=== PATIENT | female | born 1955 | race Caucasian/White ===

== ENCOUNTER → 2017-03-26 | Outpatient (CLI) | payer OTHER ==
[2017-03-26 23:04] LABS: BASO % 0 % (0-3); EOS # 0.6 x10^3/uL (0.0-0.7); EOS % 8 % (0-3); HEMATOCRIT 42.6 % (36.0-47.0); HEMOGLOBIN 14.2 g/dL (12.0-15.5); LYMPH % 23 % (24-48); MEAN CORPUSCULAR HEMOGLOBIN 29 pg (25-35); MEAN CORPUSCULAR HGB CONC 33 g/dL (31-37); MEAN CORPUSCULAR VOLUME 86 fL (79-100); MONO # 0.7 x10^3/uL (0.0-1.1); MONO % 9 % (0-9); NEUT % 60 % (31-73); PLATELET COUNT 349 x10^3/uL (140-400); RED BLOOD COUNT 4.94 x10^6/uL (3.50-5.40); RED CELL DISTRIBUTION WIDTH 13.7 % (11.5-14.5); WHITE BLOOD COUNT 8.4 x10^3/uL (4.0-11.0)
[2017-03-26 23:20] LABS: ALBUMIN 3.7 g/dL (3.4-5.0); ALBUMIN/GLOBULIN RATIO 0.9 (1.0-1.7); CALCIUM 8.9 mg/dL (8.5-10.1); CREATININE 0.8 mg/dL (0.6-1.0); GFR 73.4; POTASSIUM 4.1 mmol/L (3.5-5.1); TOTAL BILIRUBIN 0.6 mg/dL (0.2-1.0); TOTAL PROTEIN 7.7 g/dL (6.4-8.2)
[2017-03-27 01:10] LABS: BACTERIA,URINE FEW /HPF (0-FEW); BILIRUBIN,URINE NEG (NEG); CLARITY,URINE CLEAR; COLOR,URINE YELLOW; GLUCOSE,URINE NEG (NEG); NITRITE,URINE NEG (NEG); RBC,URINE OCC /HPF (0-2); UROBILINOGEN,URINE 0.2 mg/dL (0.2 mg/dL); WBC,URINE OCC /HPF (0-4)
[2017-03-27 01:11] LABS: SQUAMOUS EPITHELIAL CELL,UR OCC /LPF
[2017-03-27 13:58] LABS: FREE T4 0.98 ng/dL (0.76-1.46); THYROID STIM HORMONE (TSH) 3.371 uIU/mL (0.358-3.740)
== END | disposition home or self-care (01) ==
LOC: LAB 22:42
PROVIDERS: ATTEND Physician Assistant Medical
DX: I10 Essential (primary) hypertension (principal); E78.5 Hyperlipidemia, unspecified; R53.82 Chronic fatigue, unspecified
CPT/HCPCS: 80053; 80061; 81001; 82553; 84439; 84443; 84481; 85025

== ENCOUNTER → 2017-05-23 | Outpatient (CLI) | payer OTHER ==
[2017-05-24 03:16] LABS: HEMOGLOBIN A1C 5.8 % (4.8-5.6)
== END | disposition home or self-care (01) ==
LOC: LAB
PROVIDERS: ATTEND Physician Assistant Medical
DX: R73.9 Hyperglycemia, unspecified (principal)
CPT/HCPCS: 36415; 82947; 83036

== ENCOUNTER → 2018-05-29 | Outpatient (CLI) | payer OTHER ==
--- NOTE | 2018-05-29 14:28 | RAD ---
DATE: 05/29/2018 EXAM: MAMMO LIZ SCREENING BILATERAL HISTORY: Routine screening COMPARISON: 10/19/2010 This study was interpreted with the benefit of Computerized Aided Detection (CAD). Breast Density: FATTY The breast parenchyma is primarily fatty replaced. Breast parenchyma level density A. FINDINGS: 2-D and 3-D tomosynthesis imaging was performed in CC and MLO projections. No new or enlarging breast densities are seen. Benign type calcification is present. No suspicious microcalcifications have developed. IMPRESSION: Stable mammograms without evidence of malignancy. BI-RADS CATEGORY: 2 BENIGN FINDING(S) RECOMMENDED FOLLOW-UP: 12M 12 MONTH FOLLOW-UP PQRS compliance statement: Patient information was entered into a reminder system with a target due date for the next mammogram. Mammography is a sensitive method for finding small breast cancers, but it does not detect them all and is not a substitute for careful clinical examination. A negative mammogram does not negate a clinically suspicious finding and should not result in delay in biopsying a clinically suspicious abnormality. "Our facility is accredited by the [employer] Mammography Program."
== END | disposition home or self-care (01) ==
LOC: MAMMO 08:04
PROVIDERS: ATTEND Physician Assistant Medical
DX: Z12.31 Encounter for screening mammogram for malignant neoplasm of breast (principal)
CPT/HCPCS: 77063; 77067

== ENCOUNTER → 2018-06-02 | Outpatient (CLI) | payer OTHER ==
[2018-06-02 11:19] LABS: BASO % 0 % (0-3); EOS # 0.2 x10^3/uL (0.0-0.7); EOS % 5 % (0-3); HEMATOCRIT 44.3 % (36.0-47.0); HEMOGLOBIN 14.4 g/dL (12.0-15.5); LYMPH # 2.1 x10^3/uL (1.0-4.8); LYMPH % 38 % (24-48); MEAN CORPUSCULAR HEMOGLOBIN 28 pg (25-35); MEAN CORPUSCULAR HGB CONC 33 g/dL (31-37); MEAN CORPUSCULAR VOLUME 87 fL (79-100); MONO # 0.4 x10^3/uL (0.0-1.1); MONO % 7 % (0-9); NEUT # 2.7 x10^3uL (1.8-7.7); NEUT % 50 % (31-73); PLATELET COUNT 384 x10^3/uL (140-400); RED BLOOD COUNT 5.07 x10^6/uL (3.50-5.40); RED CELL DISTRIBUTION WIDTH 13.9 % (11.5-14.5); WHITE BLOOD COUNT 5.5 x10^3/uL (4.0-11.0)
[2018-06-02 11:43] LABS: ALBUMIN 3.4 g/dL (3.4-5.0); ALBUMIN/GLOBULIN RATIO 0.9 (1.0-1.7); CALCIUM 8.9 mg/dL (8.5-10.1); CREATININE 0.7 mg/dL (0.6-1.0); GFR 85.1; POTASSIUM 4.1 mmol/L (3.5-5.1); TOTAL BILIRUBIN 0.5 mg/dL (0.2-1.0); TOTAL PROTEIN 7.4 g/dL (6.4-8.2)
[2018-06-02 14:16] LABS: FREE T4 0.98 ng/dL (0.76-1.46); THYROID STIM HORMONE (TSH) 2.002 uIU/mL (0.358-3.740)
[2018-06-02 23:23] LABS: BILIRUBIN,URINE NEG (NEG); CLARITY,URINE CLEAR; COLOR,URINE YELLOW; GLUCOSE,URINE NEG (NEG)
[2018-06-02 23:24] LABS: BACTERIA,URINE FEW /HPF (0-FEW); NITRITE,URINE NEG (NEG); SQUAMOUS EPITHELIAL CELL,UR FEW /LPF; UROBILINOGEN,URINE 0.2 mg/dL (0.2 mg/dL)
== END | disposition home or self-care (01) ==
LOC: LAB 09:02
PROVIDERS: ATTEND Physician Assistant Medical
DX: R73.9 Hyperglycemia, unspecified (principal); E78.5 Hyperlipidemia, unspecified; E03.9 Hypothyroidism, unspecified
CPT/HCPCS: 36415; 80053; 80061; 81001; 83036; 84439; 84443; 84481; 85025; 87086

== ENCOUNTER → 2018-12-16 | Outpatient (CLI) | payer OTHER ==
[2018-12-16 08:46] LABS: BASO % 0 % (0-3); EOS # 0.2 x10^3/uL (0.0-0.7); EOS % 3 % (0-3); HEMATOCRIT 40.8 % (36.0-47.0); HEMOGLOBIN 13.4 g/dL (12.0-15.5); LYMPH # 2.2 x10^3/uL (1.0-4.8); LYMPH % 34 % (24-48); MEAN CORPUSCULAR HEMOGLOBIN 29 pg (25-35); MEAN CORPUSCULAR HGB CONC 33 g/dL (31-37); MEAN CORPUSCULAR VOLUME 88 fL (79-100); MONO # 0.5 x10^3/uL (0.0-1.1); MONO % 8 % (0-9); NEUT # 3.6 x10^3uL (1.8-7.7); NEUT % 55 % (31-73); PLATELET COUNT 369 x10^3/uL (140-400); RED BLOOD COUNT 4.62 x10^6/uL (3.50-5.40); RED CELL DISTRIBUTION WIDTH 13.8 % (11.5-14.5); WHITE BLOOD COUNT 6.4 x10^3/uL (4.0-11.0)
[2018-12-16 08:53] LABS: ALBUMIN 3.7 g/dL (3.4-5.0); CALCIUM 9.4 mg/dL (8.5-10.1); CREATININE 0.8 mg/dL (0.6-1.0); GFR 72.9; POTASSIUM 3.8 mmol/L (3.5-5.1); TOTAL BILIRUBIN 0.7 mg/dL (0.2-1.0); TOTAL PROTEIN 7.3 g/dL (6.4-8.2)
[2018-12-16 09:05] LABS: COLOR,URINE YELLOW
[2018-12-16 09:06] LABS: BACTERIA,URINE 0 /HPF (0-FEW); BILIRUBIN,URINE NEG (NEG); CLARITY,URINE CLEAR; GLUCOSE,URINE NEG (NEG); NITRITE,URINE NEG (NEG); RBC,URINE RARE /HPF (0-2); SQUAMOUS EPITHELIAL CELL,UR OCC /LPF; UROBILINOGEN,URINE 0.2 mg/dL (0.2 mg/dL); WBC,URINE OCC /HPF (0-4)
[2018-12-16 13:26] LABS: FREE T4 1.09 ng/dL (0.76-1.46)
[2018-12-16 13:27] LABS: THYROID STIM HORMONE (TSH) 2.815 uIU/mL (0.358-3.740)
[2018-12-16 23:11] LABS: HEMOGLOBIN A1C 5.8 % (4.8-5.6)
== END | disposition home or self-care (01) ==
LOC: LAB 07:32
PROVIDERS: ATTEND Physician Assistant Medical
DX: I10 Essential (primary) hypertension (principal); E78.5 Hyperlipidemia, unspecified; R42 Dizziness and giddiness
CPT/HCPCS: 36415; 80053; 80061; 81001; 82306; 82607; 83036; 84439; 84443; 84481; 85025

== ENCOUNTER → 2019-12-16 | Outpatient (CLI) | payer OTHER ==
[2019-12-16 23:07] LABS: BASO % 1 % (0-3); EOS # 0.3 x10^3/uL (0.0-0.7); EOS % 5 % (0-3); LYMPH # 1.9 x10^3/uL (1.0-4.8); LYMPH % 37 % (24-48); MEAN CORPUSCULAR HEMOGLOBIN 29 pg (25-35); MEAN CORPUSCULAR HGB CONC 33 g/dL (31-37); MEAN CORPUSCULAR VOLUME 88 fL (79-100); MONO # 0.4 x10^3/uL (0.0-1.1); MONO % 8 % (0-9); NEUT # 2.5 x10^3uL (1.8-7.7); NEUT % 49 % (31-73); PLATELET COUNT 351 x10^3/uL (140-400); RED CELL DISTRIBUTION WIDTH 13.8 % (11.5-14.5); WHITE BLOOD COUNT 5.2 x10^3/uL (4.0-11.0)
[2019-12-16 23:21] LABS: ALBUMIN 3.5 g/dL (3.4-5.0); CALCIUM 8.9 mg/dL (8.5-10.1); CREATININE 1.1 mg/dL (0.6-1.0); GFR 50.3; POTASSIUM 4.5 mmol/L (3.5-5.1); TOTAL BILIRUBIN 0.6 mg/dL (0.2-1.0); TOTAL PROTEIN 7.1 g/dL (6.4-8.2)
[2019-12-17 14:05] LABS: FREE T4 1.06 ng/dL (0.76-1.46); THYROID STIM HORMONE (TSH) 3.36 uIU/mL (0.358-3.740)
[2019-12-18 00:06] LABS: HEMOGLOBIN A1C 6.1 % (4.8-5.6)
== END | disposition home or self-care (01) ==
LOC: LAB 22:22
PROVIDERS: ATTEND Physician Assistant Medical
DX: E78.5 Hyperlipidemia, unspecified (principal); I10 Essential (primary) hypertension; E55.9 Vitamin D deficiency, unspecified; R73.9 Hyperglycemia, unspecified
CPT/HCPCS: 36415; 80053; 80061; 82306; 83036; 84439; 84443; 85025

== ENCOUNTER → 2019-12-21 | Outpatient (CLI) | payer OTHER | END | disposition home or self-care (01) | LOC: LAB 22:34 | PROVIDERS: ATTEND Internal Medicine Cardiovascular Disease | DX: Z20.828 Contact with and (suspected) exposure to other viral communicable diseases (principal) | CPT/HCPCS: 36415; U0003 ==

== ENCOUNTER → 2020-01-05 | Outpatient (CLI) | payer OTHER ==
--- NOTE | 2020-01-08 10:42 | NUR ---
IP: notified of COVID result.
== END | disposition home or self-care (01) ==
LOC: LAB 22:28
PROVIDERS: ATTEND Internal Medicine Cardiovascular Disease
DX: Z20.828 Contact with and (suspected) exposure to other viral communicable diseases (principal)
CPT/HCPCS: C9803; U0003; 36415

== ENCOUNTER → 2020-02-04 | Outpatient (CLI) | payer OTHER | END | disposition home or self-care (01) | LOC: LAB 08:47 | PROVIDERS: ATTEND Internal Medicine Cardiovascular Disease | DX: Z20.828 Contact with and (suspected) exposure to other viral communicable diseases (principal) | CPT/HCPCS: U0003-CS ==

== ENCOUNTER → 2020-06-09 | Outpatient (CLI) | payer OTHER ==
[2020-06-09 07:44] LABS: ALBUMIN 3.7 g/dL (3.4-5.0); DIRECT BILIRUBIN 0.1 mg/dL (0.0-0.2); TOTAL BILIRUBIN 0.2 mg/dL (0.2-1.0); TOTAL PROTEIN 7.8 g/dL (6.4-8.2)
== END ==
LOC: LAB 07:12
PROVIDERS: ATTEND Physician Assistant Medical
DX: E78.5 Hyperlipidemia, unspecified (principal)
CPT/HCPCS: 36415; 80076

== ENCOUNTER 2020-12-04 06:48 | Emergency (ER) | payer OTHER ==
[~2020-12-04] VITALS: Ht 162.6 cm; Wt 128.3 kg
[2020-12-04] MEDS ORDERED: IV NORMAL SALINE 1,000ML 1,000 ML IV ONE (07:00)
[2020-12-04] MEDS ORDERED: SMZ/TMP 800/160MG TABLET. PO ONE (07:15)
[2020-12-04] MEDS ORDERED: diphenhydrAMINE 50 MG/ML VIAL IVP ONE (07:15)
--- NOTE | 2020-12-04 07:17 | PHYS DOC ---
General Adult EDM: Chief Complaint: MULTIPLE COMPLAINTS HPI: HPI: 65-year-old female presents with left periorbital erythema and swelling as well as development of fever. The patient was outside mowing the yard yesterday and after she came inside she felt warm. She started to have some swelling on the l eft side of her nose around her left eye. After being in the air conditioning for a while, she still felt warm and decided to check her temperature. She had a fever of 101. She took Tylenol and it improved. This morning, the facial swelling is worse on the left and has expanded to the right side. She is having drainage from her eyes, but it is clear. She denies any eye pain or difficulty moving her eyes. She has no cough, shortness of breath, dysuria, urinary frequency. The patient denies any known allergies. She has had no exposure to any new things as far as she knows. Review of Systems: Review of Systems: Constitutional: Fever Eyes: Denies change in visual acuity. Periorbital swelling of the left eye. HENT: Erythema and swelling of the nasal and periorbital area worse on the left Respiratory: Denies cough or shortness of breath Cardiovascular: Denies chest pain or edema GI: Denies abdominal pain, nausea, vomiting, bloody stools or diarrhea : Denies dysuria Musculoskeletal: Denies back pain or joint pain Integument: Denies rash Neurologic: Denies headache, focal weakness or sensory changes Endocrine: Denies polyuria or polydipsia Lymphatic: Denies swollen glands Psychiatric: Denies depression or anxiety Current Medications: Current Meds: Current Medications Medications (Trade) Dose Ordered Sig/[facility] Start Time Stop Time Status Last Admin Dose Admin Ceftriaxone Sodium 1 gm/ Sodium Chloride 50 ml @ 100 mls/hr 1X ONCE 12/04/20 07:15 12/04/20 07:44 UNV Diphenhydramine HCl (Benadryl) 50 mg 1X ONCE 12/04/20 07:15 12/04/20 07:16 UNV Sodium Chloride 1,000 ml @ 1,000 mls/hr 1X ONCE 12/04/20 07:00 12/04/20 07:59 UNV Trimethoprim/ Sulfamethoxazole (Bactrim Ds) 1 tab 1X ONCE 12/04/20 07:15 12/04/20 07:16 UNV Physical Exam: PE: Constitutional: Well developed, well nourished, no acute distress, non-toxic appearance. [] HENT: Normocephalic, atraumatic, bilateral external ears normal, oropharynx moist, no oral exudates, nose erythematous and hot to the touch with moderate swelling. [] Eyes: PERRLA, EOMI, conjunctiva normal, no purulent discharge. Periorbital edema with warmth bilaterally, but most significant around the left eye including the upper eyelid. [] Neck: Normal range of motion, no tenderness, supple, no stridor. [] Cardiovascular:Heart rate regular rhythm, no murmur [] Lungs & Thorax: Bilateral breath sounds clear to auscultation [] Abdomen: Bowel sounds normal, soft, no tenderness, no masses, no pulsatile masses. [] Skin: Warm, erythematous skin of the nose and periorbital area worse on the left [] Back: No tenderness, no CVA tenderness. [] Extremities: No tenderness, no cyanosis, no clubbing, ROM intact, no edema. [] Neurologic: Alert and oriented X 3, normal motor function, normal sensory function, no focal deficits noted. [] Psychologic: Affect normal, judgement normal, mood normal. [] EKG: EKG: [] Radiology/Procedures: Radiology/Procedures: [] Impressions: CT ORBITS/SELLA WITH IV CONTRAST History: Reason: preseptal swelling, fever, rule out orbital cellulitis / Spl. Instructions: / History: Comparison: None. Technique: Noncontrast CT imaging was performed of the orbits. Coronal and sagittal reconstructions were performed. Exposure: One or more of the following individualized dose reduction techniques were utilized for this examination: 1. Automated exposure control 2. Adjustment of the mA and/or kV according to patient size 3. Use of iterative reconstruction technique. Findings: Left preseptal periorbital soft tissue swelling. No loculated fluid collection to suggest abscess. No retro-orbital involvement. Symmetric appearance of the globes. Symmetric appearance of the bilateral external ocular muscles and optic nerve sheaths. No acute fracture. Paranasal sinuses and mastoid air cells are clear. Imaged intracranial contents are unremarkable. Impression: 1. Left preseptal periorbital soft tissue swelling. No retro-orbital involvement. Electronically signed by: Rene Summers DO (12/04/2020 8:46 AM) [facility] DICTATED AND SIGNED BY: RENE SUMMERS DO DATE: 12/04/20 0832 CC: SAMANTHA MARTIN DO; JARRETT PHAM ~MTH0 0 Heart Score: C/O Chest Pain: N/A Risk Factors: Risk Factors: DM, Current or recent (<one month) smoker, HTN, HLP, family history of CAD, obesity. Risk Scores: Score 0 - 3: 2.5% MACE over next 6 weeks - Discharge Home Score 4 - 6: 20.3% MACE over next 6 weeks - Admit for Clinical Observation Score 7 - 10: 72.7% MACE over next 6 weeks - Early Invasive Strategies Course & Med Decision Making: Course & Med Decision Making Pertinent Labs and Imaging studies reviewed. (See chart for details) The patient appears to have periorbital cellulitis. I have ordered a CT with contrast to rule out orbital cellulitis. Labs are unremarkable except for a left shift. CT scan does not show orbital involvement. I have treated the patient with Benadryl IV, a gram of Rocephin and Bactrim DS in the emergency room. I will discharge her with Bactrim DS twice daily and cefdinir 300 mg twice daily. She is stable for discharge at this time. [] Dragon Disclaimer: Dragon Disclaimer: This electronic medical record was generated, in whole or in part, using a voice recognition dictation system. Departure Departure: Impression: Primary Impression: Periorbital cellulitis of left eye Disposition: HOME / SELF CARE / HOMELESS Condition: STABLE Referrals: JARRETT PHAM (PCP) Patient Instructions: Periorbital Cellulitis Scripts Cefdinir (CEFDINIR) 300 Mg Capsule 1 CAP PO BID for cellulitis, #14 CAP Prov: SAMANTHA MARTIN DO 12/04/20 Sulfamethoxazole/Trimethoprim (BACTRIM DS TABLET) 1 Each Tablet 1 TAB PO BID for cellulitis for 7 Days, #14 TAB 0 Refills Prov: SAMANTHA MARTIN DO 12/04/20 SAMANTHA MARTIN DO Dec 04, 2020 07:17
[2020-12-04] MEDS ORDERED: IV NORMAL SALINE 50ML 50 ML ONE (07:26)
[2020-12-04] MEDS ORDERED: cefTRIAXone SODIUM 1 GM VIAL ONE (07:26)
[2020-12-04 07:30] VITALS: BP 158/94
[2020-12-04] MEDS ORDERED: IBUPROFEN 600 MG TABLET. PO ONE (07:30)
[2020-12-04] MEDS ORDERED: IOHEXOL 300 MG/ML 75 ML VIAL. IV ONE (07:30)
[2020-12-04 07:44] LABS: BASO % 0 % (0-3); EOS % 0 % (0-3); HEMATOCRIT 42.3 % (36.0-47.0); LYMPH # 0.8 x10^3/uL (1.0-4.8); LYMPH % 7 % (24-48); MEAN CORPUSCULAR HEMOGLOBIN 29 pg (25-35); MEAN CORPUSCULAR HGB CONC 33 g/dL (31-37); MEAN CORPUSCULAR VOLUME 87 fL (79-100); MONO # 0.7 x10^3/uL (0.0-1.1); MONO % 6 % (0-9); NEUT # 9.5 x10^3uL (1.8-7.7); NEUT % 87 % (31-73); PLATELET COUNT 329 x10^3/uL (140-400); RED BLOOD COUNT 4.87 x10^6/uL (3.50-5.40); RED CELL DISTRIBUTION WIDTH 14.1 % (11.5-14.5)
[2020-12-04 07:53] LABS: POTASSIUM 4.1 mmol/L (3.5-5.1)
[2020-12-04 07:59] LABS: ALBUMIN 3.7 g/dL (3.4-5.0); TOTAL BILIRUBIN 0.6 mg/dL (0.2-1.0); TOTAL PROTEIN 7.5 g/dL (6.4-8.2)
[2020-12-04] MEDS ORDERED: CONTRAST GIVEN. MC PRN (08:15)
--- NOTE | 2020-12-04 08:48 | RAD ---
CT ORBITS/SELLA WITH IV CONTRAST History: Reason: preseptal swelling, fever, rule out orbital cellulitis / Spl. Instructions: / Histo ry: Comparison: None. Technique: Noncontrast CT imaging was performed of the orbits. Coronal and sagittal reconstructions w ere performed. Exposure: One or more of the following individualized dose reduction techniques were utilized for thi s examination: 1. Automated exposure control 2. Adjustment of the mA and/or kV according to patient size 3. Use of iterative reconstruction technique. Findings: Left preseptal periorbital soft tissue swelling. No loculated fluid collection to suggest abscess. N o retro-orbital involvement. Symmetric appearance of the globes. Symmetric appearance of the bilatera l external ocular muscles and optic nerve sheaths. No acute fracture. Paranasal sinuses and mastoid air cells are clear. Imaged intracranial contents are unremarkable. Impression: 1. Left preseptal periorbital soft tissue swelling. No retro-orbital involvement. Electronically signed by: Fabian Cassidy DO (12/04/2020 8:46 AM) [facility]
[2020-12-04 08:53] LABS: BILIRUBIN,URINE NEG (NEG); CLARITY,URINE CLEAR; COLOR,URINE YELLOW; GLUCOSE,URINE NEG (NEG); NITRITE,URINE NEG (NEG); UROBILINOGEN,URINE 0.2 mg/dL (0.2 mg/dL)
[2020-12-04 09:01] LABS: BACTERIA,URINE 0 /HPF (0-FEW); SQUAMOUS EPITHELIAL CELL,UR MOD /LPF
[2020-12-04] MEDS ORDERED: SULF1TAB24 PO (09:02)
[2020-12-04] MEDS ORDERED: CEFD300C PO (09:02)
[2020-12-05] MEDS ORDERED: PRAV10TA2 PO (10:30)
[2020-12-05] MEDS ORDERED: HYDR-2145 PO (10:30)
[2020-12-05] MEDS ORDERED: LISI20TA18 PO (10:30)
[2020-12-05] MEDS ORDERED: MELO15TA23 PO (10:30)
== END 2020-12-04 09:10 | disposition home or self-care (01) ==
LOC: ER 06:48
DX: L03.213 Periorbital cellulitis (principal)
CPT/HCPCS: 36415; 70481; 80053; 81001; 85025; 87040; 87086; 96365; 96375; 99285; J0696; J1200; J7030

== ENCOUNTER 2020-12-05 06:20 | Inpatient (IN) | payer OTHER ==
[~2020-12-05] VITALS: Ht 162.6 cm; Wt 126.8 kg
[~2020-12-05 06:20] MED LIST: CEFD300C PO; SULF1TAB24 PO
--- NOTE | 2020-12-05 06:39 | PHYS DOC ---
Past History Past Surgical History: No Surgical History Alcohol Use: None General Adult EDM: Chief Complaint: SKIN PROBLEM HPI: HPI: 65-year-old female returns the emergency room with worsening facial cellulitis. I personally saw the patient yesterday and placed her on Bactrim and cefdinir. The patient has taken doses yesterday evening and this morning. She is concerned because the cellulitis is worse. She has worsened swelling of her nose and expansion of the area more on the right side of her face. No fever on arrival. Review of Systems: Review of Systems: Constitutional: Denies fever or chills Eyes: Denies change in visual acuity HENT: Denies nasal congestion or sore throat Respiratory: Denies cough or shortness of breath Cardiovascular: Denies chest pain or edema GI: Denies abdominal pain, nausea, vomiting, bloody stools or diarrhea : Denies dysuria Musculoskeletal: Denies back pain or joint pain Integument: Facial rash Neurologic: Denies headache, focal weakness or sensory changes Endocrine: Denies polyuria or polydipsia Lymphatic: Denies swollen glands Psychiatric: Denies depression or anxiety Allergies: Allergies: Allergies Coded Allergies Type Severity Reaction Last Updated Verified No Known Drug Allergies 12/04/20 No Physical Exam: PE: Constitutional: Well developed, well nourished, no acute distress, non-toxic appearance. [] HENT: Normocephalic, atraumatic, bilateral external ears normal, oropharynx moist, no oral exudates, nose normal. [] Eyes: PERRLA, EOMI, conjunctiva normal, no discharge. [] Neck: Normal range of motion, no tenderness, supple, no stridor. [] Cardiovascular:Heart rate regular rhythm, no murmur [] Lungs & Thorax: Bilateral breath sounds clear to auscultation [] Abdomen: Bowel sounds normal, soft, no tenderness, no masses, no pulsatile masses. [] Skin: Hot, erythematous rash of the face including bilateral periorbital area and nose. [] Back: No tenderness, no CVA tenderness. [] Extremities: No tenderness, no cyanosis, no clubbing, ROM intact, no edema. [] Neurologic: Alert and oriented X 3, normal motor function, normal sensory function, no focal deficits noted. [] Psychologic: Affect normal, judgement normal, mood normal. [] EKG: EKG: [] Radiology/Procedures: Radiology/Procedures: [] Heart Score: C/O Chest Pain: N/A Risk Factors: Risk Factors: DM, Current or recent (<one month) smoker, HTN, HLP, family history of CAD, obesity. Risk Scores: Score 0 - 3: 2.5% MACE over next 6 weeks - Discharge Home Score 4 - 6: 20.3% MACE over next 6 weeks - Admit for Clinical Observation Score 7 - 10: 72.7% MACE over next 6 weeks - Early Invasive Strategies Course & Med Decision Making: Course & Med Decision Making Pertinent Labs and Imaging studies reviewed. (See chart for details) The patient's condition does seem to worsened quite a bit in less than 24 hours. I will give her a gram of Rocephin in the emergency room and admit her to the hospital. Her CT scan from yesterday showed no orbital involvement. I spoke with Dr. Goodman and he has accepted the patient for admission. He is also asked that we start vancomycin in the ED which we have done. The patient is in agreement with admission. [] Dragon Disclaimer: Dragon Disclaimer: This electronic medical record was generated, in whole or in part, using a voice recognition dictation system. Departure Departure: Impression: Primary Impression: Erysipelas Disposition: ADMITTED INPATIENT Admitting Physician: Gina Goodman Condition: STABLE Referrals: JARRETT PHAM (PCP) SAMANTHA MARTIN DO Dec 05, 2020 06:39
[2020-12-05] MEDS ORDERED: ACETAMINOPHEN 325 MG TABLET PO PRN (07:15)
[2020-12-05] MEDS ORDERED: ONDANSETRON PF 4 MG/2 ML VIAL. IVP PRN (07:15)
[2020-12-05] MEDS ORDERED: IV NORMAL SALINE 50ML 50 ML ONE (07:17)
[2020-12-05] MEDS ORDERED: cefTRIAXone SODIUM 1 GM VIAL ONE (07:17)
[2020-12-05 07:32] LABS: BASO % 0 % (0-3); EOS % 0 % (0-3); HEMATOCRIT 40.8 % (36.0-47.0); HEMOGLOBIN 13.6 g/dL (12.0-15.5); LYMPH % 9 % (24-48); MEAN CORPUSCULAR HEMOGLOBIN 29 pg (25-35); MEAN CORPUSCULAR HGB CONC 33 g/dL (31-37); MEAN CORPUSCULAR VOLUME 87 fL (79-100); MONO # 0.5 x10^3/uL (0.0-1.1); MONO % 5 % (0-9); NEUT % 85 % (31-73); PLATELET COUNT 304 x10^3/uL (140-400); RED BLOOD COUNT 4.69 x10^6/uL (3.50-5.40); RED CELL DISTRIBUTION WIDTH 14.2 % (11.5-14.5); WHITE BLOOD COUNT 10.5 x10^3/uL (4.0-11.0)
[2020-12-05 07:39] LABS: CALCIUM 8.5 mg/dL (8.5-10.1); POTASSIUM 3.7 mmol/L (3.5-5.1)
[2020-12-05 07:45] LABS: ALBUMIN 3.5 g/dL (3.4-5.0); ALBUMIN/GLOBULIN RATIO 0.9 (1.0-1.7); TOTAL BILIRUBIN 0.4 mg/dL (0.2-1.0); TOTAL PROTEIN 7.3 g/dL (6.4-8.2)
[2020-12-05] MEDS ORDERED: VANCOMYCIN 2 GM in IV NORMAL SALINE 500ML 500 ML IV ONE (08:00)
[2020-12-05 09:45] VITALS: BP 152/85
[2020-12-05] MEDS ORDERED: HYDR-2145 PO (10:30)
[2020-12-05] MEDS ORDERED: LISI20TA18 PO (10:30)
[2020-12-05] MEDS ORDERED: MELO15TA23 PO (10:30)
[2020-12-05] MEDS ORDERED: PRAV10TA2 PO (10:30)
[2020-12-05] MEDS: hydroCHLOROthiazide 25 MG TABLET. PO SCH (10:59)
[2020-12-05] MEDS: MELOXICAM 15 MG TABLET. PO SCH (10:59)
[2020-12-05] MEDS: ATORVASTATIN CALCIUM 10 MG TABLET. PO SCH (10:59)
[2020-12-05] MEDS: LISINOPRIL 20 MG TABLET PO SCH (11:00)
[2020-12-05] MEDS ORDERED: VANCOMYCIN PER PHARMACY MC PRN (13:15)
--- NOTE | 2020-12-05 13:25 | HP ---
ADMIT DATE: 12/05/2020 HISTORY OF PRESENT ILLNESS: The patient is a 65-year-old female patient who presented to the Emergency Room with worsening facial cellulitis. She was seen in the Emergency Room yesterday, was placed on Bactrim and cefdinir. She took her medication yesterday evening and this morning; however, she came back because her cellulitis is worse. She has worsened swelling of her nose and expansion of the area, more on the right side of her face. Denied any fever. Denied any headache, blurring of vision. She was examined and extensively investigated. Her white cell count was normal 10,000. Her chemistry was unremarkable. She did have a CT scan of the orbit done yesterday, which showed that the patient has left preseptal periorbital soft tissue swelling. No loculated fluid collection to suggest abscess. No auditory or orbital involvement. Symmetric appearance of the globes, symmetric appearance of the bilateral external ocular muscles and optic nerve sheath, no acute fracture. She has paranasal sinuses and mastoid air cells are clear. Imaged intracranial contents are unremarkable. The patient was admitted, started on IV ceftriaxone as well as vancomycin. We will follow her closely and decide on further management accordingly. PAST MEDICAL HISTORY: Significant for hypertension, hyperlipidemia as well as plantar fasciitis. PAST SURGICAL HISTORY: Significant for appendectomy. ALLERGIES: She has no known drug allergies. MEDICATIONS: She is currently on the following medications: She is on pravastatin ____ mg at bedtime, lisinopril 20 mg once a day, meloxicam 15 mg daily and hydrochlorothiazide 25 mg daily. She was also on cefdinir 300 mg twice a day and sulfamethoxazole, trimethoprim one tablet twice a day. FAMILY HISTORY: She has 1 older brother and 1 younger sister, both healthy. Her father of massive heart attack at the age of 53. Mother is still alive at the age of 85 and has bronchial asthma and hypothyroidism. SOCIAL HISTORY: She is , has 2 sons. She never smoked. Drinks alcohol occasionally. Does not use any drugs. 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 REVIEW OF SYSTEMS: As per history of present illness. PHYSICAL EXAMINATION: GENERAL: On examining her, she looked well and was clearly in no apparent respiratory distress. There was no pallor, jaundice, cyanosis, or thyromegaly. No jugular venous distention. No lower limb edema. VITAL SIGNS: Her heart rate was 88, blood pressure is 156/89, temperature was 99.9, respiratory rate was 20 and oxygen saturation was 96%. HEAD, EYES, EARS, NOSE, AND THROAT: Normocephalic, atraumatic. She has redness extending over the bridge of the nose and around her right eye and left eye in the distribution typical of erysipelas. NECK: Supple. HEART: Showed normal first and second heart sounds. No gallop, rub or murmur. CHEST: Clear to auscultation, no crepitation or rhonchi. ABDOMEN: Distended, soft, nontender, no guarding or rigidity. No organomegaly. All hernial orifice intact. Bowel sounds normal. NEUROLOGIC: She was awake, alert, responding appropriately. Cranial nerves intact. She moves extremities without difficulty. She ambulates without assistance or assistive devices. LABORATORY DATA: Showed that her white cell count was 10,500, hemoglobin 13.6, hematocrit 40.8, MCV 87 and platelet count of 304,000 with a manual differential showed 85% polymorphs, 9% lymphocytes, 5% monocytes. Her chemistry showed a serum sodium 140, potassium 3.7, chloride 104, bicarbonate 29, anion gap of 7, BUN 11, creatinine 1, estimated GFR was 56 mL per minute. Her glucose 124, calcium was 8.5. Total bilirubin, AST, ALT, alkaline phosphatase were normal. Total protein 7.3, albumin was 3.5. ASSESSMENT: Erysipelas. PLAN: To continue with IV ceftriaxone as well as vancomycin. I would probably hold off on the cefdinir and Bactrim for now and follow her response clinically on a daily basis. ROMULO/SANDY DR: Yuli TID: [id number]
[2020-12-05 15:42] VITALS: BP 160/85
[2020-12-05] MEDS: ACETAMINOPHEN 325 MG TABLET PO PRN ×2 (15:45→20:00)
[2020-12-05 20:05] VITALS: BP 95/63
[2020-12-05] MEDS ORDERED: SMZ/TMP 800/160MG TABLET. PO SCH (21:00)
[2020-12-05] MEDS ORDERED: CEFDINIR 300 MG CAPSULE PO SCH (21:00)
[2020-12-05] MEDS: VANCOMYCIN 1.75 GM in IV NORMAL SALINE 500ML 500 ML IV SCH (21:22)
[2020-12-05 23:03] VITALS: BP 113/65
[2020-12-06 03:19] VITALS: BP 136/74
[2020-12-06] MEDS: ACETAMINOPHEN 325 MG TABLET PO PRN (03:24)
[2020-12-06 06:26] VITALS: BP 127/68
[2020-12-06] MEDS: hydroCHLOROthiazide 25 MG TABLET. PO SCH (09:08)
[2020-12-06] MEDS: MELOXICAM 15 MG TABLET. PO SCH (09:08)
[2020-12-06] MEDS: LISINOPRIL 20 MG TABLET PO SCH (09:09)
[2020-12-06] MEDS: ATORVASTATIN CALCIUM 10 MG TABLET. PO SCH (09:09)
[2020-12-06] MEDS: VANCOMYCIN 1.75 GM in IV NORMAL SALINE 500ML 500 ML IV SCH ×2 (09:11→21:04)
[2020-12-06 11:36] VITALS: BP 113/55
[2020-12-06 15:26] VITALS: BP 153/72
[2020-12-06 18:24] VITALS: BP 126/75
[2020-12-06] MEDS: LACTOBACILLUS RHAMNOSUS GG 1 CAPSULE. PO SCH (20:13)
--- NOTE | 2020-12-06 20:22 | PN ---
DATE: 12/06/2020 SUBJECTIVE: The patient is sitting on the edge of the bed comfortably, in no apparent distress. Questioning her, denied any complaint. The redness on her face and around her eyes is slowly receding. PHYSICAL EXAMINATION: GENERAL: When I examined her, she looked well and was clearly in no apparent respiratory distress. No pallor, jaundice, cyanosis, or thyromegaly. No jugular venous distention. No limb edema. VITAL SIGNS: Her heart rate was 62, blood pressure was 113/55, temperature was 96.7, respiratory rate 20, and oxygen saturation was 97%. HEAD, EYES, EARS, NOSE, AND THROAT: Normocephalic, atraumatic. NECK: Supple. HEART: Normal first and second heart sounds. No gallop or murmur. CHEST: Clear to auscultation. No crepitation or rhonchi. ABDOMEN: Distended, soft, nontender. NEUROLOGIC: She was grossly intact. SKIN: Examination of the skin of her face showed that the erythema and raised edges are receding slowly. Her intake over the last 24 hours was 1600, no output was recorded. LABORATORY DATA: No lab work done this morning. ASSESSMENT: Erysipelas which we will continue with IV ceftriaxone as well as vancomycin. Other medical problems include hypertension, hyperlipidemia and plantar fasciitis. PLAN: To continue with IV ceftriaxone and Rocephin and she probably can be discharged home tomorrow on oral antibiotic and/or she can go home with a PICC line and IV Rocephin 2 grams once a day for another [address]: Yuli TID: [id number]
[2020-12-06 20:29] LABS: VANC TR 15.2 mcg/mL (10.0-20.0)
[2020-12-06 23:13] VITALS: BP 121/82
[2020-12-07 06:16] VITALS: BP 153/86
[2020-12-07 06:29] LABS: HEMATOCRIT 39.6 % (36.0-47.0); HEMOGLOBIN 13.1 g/dL (12.0-15.5); RED BLOOD COUNT 4.59 x10^6/uL (3.50-5.40); RED CELL DISTRIBUTION WIDTH 13.9 % (11.5-14.5); WHITE BLOOD COUNT 5.6 x10^3/uL (4.0-11.0)
[2020-12-07 06:36] LABS: ALBUMIN/GLOBULIN RATIO 0.8 (1.0-1.7); CALCIUM 8.4 mg/dL (8.5-10.1); CREATININE 0.8 mg/dL (0.6-1.0); GFR 72.4; POTASSIUM 3.8 mmol/L (3.5-5.1); TOTAL BILIRUBIN 0.3 mg/dL (0.2-1.0); TOTAL PROTEIN 6.9 g/dL (6.4-8.2)
[2020-12-07] MEDS: hydroCHLOROthiazide 25 MG TABLET. PO SCH (08:48)
[2020-12-07] MEDS: MELOXICAM 15 MG TABLET. PO SCH (08:48)
[2020-12-07] MEDS: LISINOPRIL 20 MG TABLET PO SCH (08:48)
[2020-12-07] MEDS: LACTOBACILLUS RHAMNOSUS GG 1 CAPSULE. PO SCH ×2 (08:48→20:24)
[2020-12-07] MEDS: VANCOMYCIN 1.75 GM in IV NORMAL SALINE 500ML 500 ML IV SCH ×2 (08:48→21:32)
[2020-12-07] MEDS: ATORVASTATIN CALCIUM 10 MG TABLET. PO SCH (08:48)
[2020-12-07 10:29] VITALS: BP 121/78
[2020-12-07 15:06] VITALS: BP 111/71
[2020-12-07 19:45] VITALS: BP 125/88
--- NOTE | 2020-12-07 20:15 | PN ---
DATE: 12/07/2020 ATTENDING PHYSICIAN: Dr. Goodman/Dr. Rios. SUBJECTIVE: No new complaints. Swelling, erythema of face is improved. She denies any visual issues. The swelling along the orbits had receded. OBJECTIVE FINDINGS: VITAL SIGNS: Blood pressure is 121/82 mmHg. She is afebrile. Oxygen saturation 95% on room air. HEENT: There is swelling, erythema along the orbits, it is more prominent on the left side, it is receding and the swelling is diminishing. There is no open drainage or abscess. Extraocular muscles intact. There is no diplopia. NECK: Supple. No stridor. LUNGS: Clear. CARDIOVASCULAR: Shows regular heart sounds, no gallops. ABDOMEN: Soft. EXTREMITIES: Without edema. NEUROLOGIC: Focally intact. SKIN: Warm and dry. PERTINENT LABORATORY DATA: Hemoglobin 13.1 g/dL with a white count of 5600. Electrolytes within normal range. Nonfasting blood sugar 114 mg/dL. ASSESSMENT: 1. Erysipelas refractory to outpatient oral antibiotics. 2. Essential hypertension. 3. Hyperlipidemia. 4. History of plantar fasciitis. PLAN: 1. Continue IV antibiotics as ordered. 2. We will monitor her degree of infection. If progress is slow, then she will probably need further IV antibiotics in the form of a PICC line. We will make that decision tomorrow. RYAN/SANDY DR: Alisha TID: [id number] CC: JAMAR LIU
[2020-12-07 22:30] VITALS: BP 108/87
[2020-12-08 06:05] VITALS: BP 133/85
[2020-12-08 08:45] LABS: VANC TR 20.5 mcg/mL (10.0-20.0)
[2020-12-08 09:18] VITALS: BP 133/85
[2020-12-08] MEDS: LISINOPRIL 20 MG TABLET PO SCH (09:18)
[2020-12-08] MEDS: ATORVASTATIN CALCIUM 10 MG TABLET. PO SCH (09:18)
[2020-12-08] MEDS: hydroCHLOROthiazide 25 MG TABLET. PO SCH (09:18)
[2020-12-08] MEDS: LACTOBACILLUS RHAMNOSUS GG 1 CAPSULE. PO SCH (09:18)
[2020-12-08] MEDS: MELOXICAM 15 MG TABLET. PO SCH (09:18)
--- NOTE | 2020-12-08 09:26 | DS ---
DATE OF DISCHARGE: 12/08/2020 ATTENDING PHYSICIAN: Dr. Goodman. FINAL DISCHARGE DIAGNOSES: 1. Erysipelas of face. 2. Hyperlipidemia. 3. Essential hypertension. 4. History of plantar fasciitis. 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 She had erysipelas of the face. She was given oral antibiotics in the ED namely cefdinir as well as Bactrim without any improvement. She was admitted then with erysipelas refractory to outpatient oral antibiotics. PHYSICAL EXAMINATION: Please see the dictated note. PERTINENT LABORATORY AND X-RAY STUDIES: Admission hemoglobin was 13.6 g/dL, white count 10,500. Repeat white count was down to 5600. Electrolytes within normal range. Creatinine 0.8 mg %. Nonfasting blood sugar 124. Liver panel, transaminases are all within normal range. COURSE IN THE HOSPITAL: The patient was admitted. She was treated with 3 full days of intravenous antibiotics with marked improvement. On the fourth hospital day, her vital signs were stable. She was afebrile. She was ready for discharge. The swelling, edema and erythema had all dissipated. At this time, due to the nature of classic presentation of erysipelas, which is usually due to streptococcal species, Strep pyogenes, I recommended Augmentin 875 one b.i.d. for 10 more days. Other home meds remains unchanged. She should continue her lisinopril 20 mg daily and pravastatin dose is unchanged. I suggest a followup visit with JAMAR Whitney in 1 week's time. This lady was then discharged from our hospital in stable condition with explicit drug and a followup care. Total visit time is [address]: Alisha TID: [id number] CC: JAMAR LIU
[2020-12-08] MEDS ORDERED: AMOX1TAB61 PO (09:37)
== END 2020-12-08 09:25 | disposition home or self-care (01) | DRG 603 ==
LOC: ER 06:20 → 1 SOUTH 09:26
PROVIDERS: ADMIT Internal Medicine; ATTEND Internal Medicine
DX: A46 Erysipelas (principal); L03.211 Cellulitis of face; E78.5 Hyperlipidemia, unspecified; I10 Essential (primary) hypertension; M72.2 Plantar fascial fibromatosis; Z79.899 Other long term (current) drug therapy; Z82.49 Family history of ischemic heart disease and other diseases of the circulatory system; Z82.5 Family history of asthma and other chronic lower respiratory diseases; B95.5 Unspecified streptococcus as the cause of diseases classified elsewhere
CPT/HCPCS: 36415; 80053; 80202; 85025; 85027; 96365; 96366; 96367; J0696; J3370; J7040; 99285-25

== ENCOUNTER → 2021-06-12 | Outpatient (CLI) | payer OTHER ==
[~2021-06-12] MED LIST changes: +AMOX1TAB61 PO; +HYDR-2145 PO; +LISI20TA18 PO; +MELO15TA23 PO; +PRAV10TA2 PO
== END ==
LOC: LAB 07:02
PROVIDERS: ATTEND Internal Medicine Cardiovascular Disease
DX: U07.1 COVID-19 (principal)
CPT/HCPCS: U0003